=== PATIENT | male | born 1940 | race Caucasian/White ===

== ENCOUNTER 2017-06-03 10:11 | Day surgery (SDC) | payer MEDICARE, OTHER ==
[2017-06-02 15:41] VITALS: BMI 27.8
[2017-06-03] MEDS ORDERED: Gadobenate Dimeglumine 529 MG/1 ML (20ML VIAL) ONE (12:52)
--- NOTE | 2017-06-04 07:33 | MRI ---
POST CONTRAST ENHANCED MRI IMAGES OF THE LUMBAR SPINE: History: Low back pain. History of surgery. Technique: Multiplanar, multisequence pre and post contrast enhanced MRI images of the lumbar spine o btained. FINDINGS: Images demonstrate no evidence of definite compression fractures. There is signal abnormality in the inferior endplate of L5 and superior endplate of S1. There is some increased signal seen in the L5-S1 intervertebral disc space. This may represent possible L5-S1 disc degenerative changes with adjacent Modic type I changes. The degree of disc edema and endplate castillo es has increased compared to the previous comparison MRI from 08-20-16. T11-12: There is an annular fissure in the left T11-12 disc. No significant degree of central stenosi s is seen. The neural foramen are patent. T12-L1: There is some disc desiccation change seen. No significant degree of central stenosis seen. T here is mild facet hypertrophy seen. L1-2: There is some disc desiccation seen. There is a broad based disc bulge with bilateral facet hyp ertrophy. This results in mild central stenosis and lateral recess stenosis. The neural foramen are p atent. L2-3: Disc desiccation is seen. There is a broad based disc bulge with bilateral facet hypertrophy. T his results in moderate degree of central stenosis with moderate left L2-3 lateral recess stenosis. T he neural foramen demonstrated a moderate degree of patency. L3-4: Disc desiccation is seen. There is a broad based disc bulge with moderate bilateral facet hype rtrophy. This results in moderate to severe bilateral neural foraminal narrowing. This is not signifi cantly changed since the previous comparison exam from 2016. The patient has had a previous L3, L4, a nd L5 laminectomies. L4-5: There is mild anterolisthesis of L4 on L5. This is unchanged since the previous comparison MRI. There is severe facet hypertrophy bilaterally with moderate to severe bilateral neural foraminal rafiq rowing. Mild grade I anterolisthesis of L4 on L5 is seen. L5-S1: Again endplate changes and findings compatible with disc degenerative change is noted. There i s moderate right and moderate to severe left sided neural foraminal narrowing due to facet hypertroph y. This is not significantly changed since the previous comparison exam. There is a broad based disc bulge in the right L5-S1 bilateral recess and neural foramen. This is not significantly changed since the previous comparison exam. IMPRESSION: 1. Multilevel laminectomies with neural foraminal narrowing at multiple levels. No significant degree of acute lumbar spine pathology is seen. There does appear to be some progressing L5-S1 disc degener ative changes and increasing Modic type I changes involving the endplates at L5-S1. POS: [facility]
== END 2017-06-03 13:56 | disposition home or self-care (01) ==
LOC: SDC/OP 10:11
PROVIDERS: ATTEND Nurse Practitioner Family
DX: M48.062 Spinal stenosis, lumbar region with neurogenic claudication (principal); F40.240 Claustrophobia; Z88.0 Allergy status to penicillin; Z88.8 Allergy status to other drugs, medicaments and biological substances
CPT/HCPCS: 36415; 72158; 82565; A9579

== ENCOUNTER 2021-08-24 09:38 | Outpatient (CLI) | payer MEDICARE | END 2021-08-24 09:39 | disposition home or self-care (01) | LOC: BICRAD 09:38 | PROVIDERS: ATTEND Nurse Practitioner Family | DX: M25.561 Pain in right knee (principal) ==

== ENCOUNTER 2021-09-05 13:58 | Inpatient (IN) | payer MEDICARE ==
[2021-09-05] MEDS ORDERED: Morphine 4 MG/ML VIAL ONE ×2 (14:19→16:09)
[2021-09-05] MEDS ORDERED: Fentanyl 100 MCG/2 ML VIAL ONE (15:38)
[2021-09-05 15:42] LABS: Hemoglobin 14.1 g/dL (14.0-18.0); Mean Corpuscular HGB CONC 33.2 g/dL (32.0-36.0); Mean Corpuscular Hemoglobin 32.4 pg (27.0-31.0); Mean Corpuscular Volume 97.6 fL (78.0-98.0); Platelet Count 348 thou/uL (130-400); RBC Distribution Width 11.8 % (11.5-14.5); Red Blood Cell (RBC) Count 4.34 mill/uL (4.70-6.10); White Blood Cell (WBC) Count 21.3 thou/uL (4.8-10.8)
[2021-09-05 16:00] LABS: ALT (SGPT) 14 U/L (8-55); AST (SGOT) 17 U/L (5-34); Albumin 4.1 g/dL (3.4-4.8); Alkaline Phosphatase 100 U/L (40-110); Anion Gap 17 mmol/L (10-20); BUN (Urea Nitrogen) 48 mg/dL (8.4-25.7); Bilirubin, Total 0.7 mg/dL (0.2-1.2); Calc. Creatinine Clearance 0 mL/min (70-130); Calcium 9.6 mg/dL (7.8-10.44); Carbon Dioxide 15 mmol/L (23-31); Chloride 108 mmol/L (98-107); Glucose 140 mg/dL (83-110); Potassium 5.5 mmol/L (3.5-5.1); Protein, Total 8.1 g/dL (5.8-8.1); Sodium 134 mmol/L (136-145)
[2021-09-05] MEDS ORDERED: Clindamycin/D5W 900 MG in Premix Bag 1 BAG IVPB SCH (16:00)
[2021-09-05 16:06] LABS: Lymphocytes 5 % (21-51); MDiff Complete? YES; Monocytes 2 % (0-10); Neutrophil 93 % (42-75); Platelet Morphology Comment Appears Adequate; RBC Morphology Normal
[2021-09-05 16:07] LABS: Magnesium 1.9 mg/dL (1.6-2.6)
[2021-09-05] MEDS ORDERED: hydrALAZINE 20 MG/ML VIAL SLOW IVP PRN (16:08)
[2021-09-05] MEDS ORDERED: Dextrose 50% Abboject 50 ML SYRINGE SLOW IVP PRN (16:08)
[2021-09-05] MEDS ORDERED: Dextrose 5% in Water 1,000 ML IV PRN (16:08)
[2021-09-05] MEDS ORDERED: Ondansetron PF 4 MG/2 ML Vial IVP PRN (16:08)
[2021-09-05] MEDS ORDERED: Acetaminophen/Codeine 30-300mg Tablet PO PRN (16:11)
[2021-09-05] MEDS ORDERED: Cyclobenzaprine 10 MG TAB PO PRN (16:11)
[2021-09-05 16:31] LABS: Phosphorus 1.5 mg/dL (2.3-4.7)
[2021-09-05 16:45] LABS: Hemoglobin A1c 5.4 % (4.0-6.0)
[2021-09-05 16:53] LABS: SARS-CoV-2 NAA Rapid Test Not Detected (NotDetected)
[2021-09-05] MEDS ORDERED: K-Phos Neutral 250 MG TAB PO SCH (17:00)
[2021-09-05] MEDS ORDERED: Sodium Phosphate 30 MMOL in Sodium Chloride 0.9% 250 ML 250 ML IVPB SCH (17:45)
[2021-09-05 18:53] VITALS: BMI 26.9
[2021-09-05 19:23] LABS: Bacteria/HPF None Seen HPF (None Seen); Bilirubin Negative (Negative); Blood, Urine Negative (Negative); Clarity Clear (Clear); Glucose, Urine (Dipstick) Normal (Negative); Ketone, Urine Negative (Negative); Leukocyte 75 Leu/uL (Negative); Nitrite Negative (Negative); Protein, Urine (Dipstick) Negative (Neg-Trace); RBC/HPF 0-3 HPF (0-3); Specific Gravity, Urine 1.017 (1.002-1.036); Squamous Epithelial None Seen HPF (0-3); Urobilinogen Normal mg/dL (Less than 2); WBC/HPF 0-3 HPF (0-3)
[2021-09-05] MEDS: Sodium Chloride 0.9% 1,000 ML IV SCH (19:26)
[2021-09-05] MEDS: Acetaminophen 325 MG TAB PO SCH (21:45)
[2021-09-05] MEDS: Acetaminophen/Codeine 30-300mg Tablet PO SCH (21:45)
[2021-09-05] MEDS: Senokot S 8.6-50 MG TAB PO SCH (21:46)
[2021-09-05] MEDS: Famotidine 20 MG TAB PO SCH (21:46)
[2021-09-05] MEDS: Gabapentin 300 MG CAP PO SCH (21:46)
[2021-09-05] MEDS: Morphine 4 MG/ML VIAL SLOW IVP PRN (23:20)
[2021-09-06] MEDS: Acetaminophen 325 MG TAB PO SCH ×4 (01:20→17:59)
[2021-09-06] MEDS: Acetaminophen/Codeine 30-300mg Tablet PO SCH ×4 (01:21→17:57)
[2021-09-06] MEDS: Morphine 4 MG/ML VIAL SLOW IVP PRN ×2 (02:18→07:37)
[2021-09-06 04:31] LABS: #Lymphocytes 1.7 thou/uL (1.20-3.40); #Monocytes 1.2 thou/uL (0.11-0.59); #Neutrophils 13.7 thou/uL (1.40-6.50); %Basophils 0.1 % (0.0-1.0); %Eosinophils 0.2 % (0.0-10.0); %Lymphocytes 10.3 % (21.0-51.0); %Monocytes 7.4 % (0.0-10.0); Hemoglobin 11.7 g/dL (14.0-18.0); Mean Corpuscular HGB CONC 32.4 g/dL (32.0-36.0); Mean Corpuscular Hemoglobin 33.3 pg (27.0-31.0); Mean Platelet Volume 6.2 fL (7.4-10.4); Platelet Count 282 thou/uL (130-400); RBC Distribution Width 11.7 % (11.5-14.5); Red Blood Cell (RBC) Count 3.51 mill/uL (4.70-6.10); White Blood Cell (WBC) Count 16.7 thou/uL (4.8-10.8)
[2021-09-06 05:03] LABS: Anion Gap 11 mmol/L (10-20); BUN (Urea Nitrogen) 44 mg/dL (8.4-25.7); Calc. Creatinine Clearance 38 mL/min (70-130); Calcium 8.2 mg/dL (7.8-10.44); Carbon Dioxide 21 mmol/L (23-31); Chloride 109 mmol/L (98-107); Glucose 121 mg/dL (83-110); Magnesium 1.8 mg/dL (1.6-2.6); Phosphorus 5.9 mg/dL (2.3-4.7); Sodium 136 mmol/L (136-145)
[2021-09-06] MEDS ORDERED: Magnesium 2 GM/50 ML(in water) 2 GM in Premix Bag 1 BAG IVPB SCH (08:00)
[2021-09-06] MEDS ORDERED: Amlodipine 5 MG TAB PO SCH (09:00)
[2021-09-06] MEDS ORDERED: Non-Formulary Item 1 EACH (Sertraline Hcl [Zoloft] 50 MG Tab) PO SCH (09:00)
[2021-09-06] MEDS: Famotidine 20 MG TAB PO SCH ×2 (09:11→20:14)
[2021-09-06] MEDS: Gabapentin 300 MG CAP PO SCH ×3 (09:11→20:15)
[2021-09-06] MEDS ORDERED: Fentanyl 100 MCG/2 ML VIAL ONE (10:31)
[2021-09-06] MEDS ORDERED: Levofloxacin 500 mg/D5W 100 ml Premix Bag ONE (10:34)
[2021-09-06] MEDS ORDERED: Bupivacaine HCl 0.5%/Epinephrine 1:200,000/PF 30 ml Vial ONE (10:40)
[2021-09-06] MEDS ORDERED: Vancomycin (BATCH) 1.5 GRAM/300 ML BAG ONE (10:46)
[2021-09-06] MEDS ORDERED: HYDROcodone/Acetaminophen 10/325 mg Tablet PO PRN ×2 (10:54)
[2021-09-06] MEDS ORDERED: Ondansetron PF 4 MG/2 ML Vial IVP PRN (10:54)
[2021-09-06] MEDS ORDERED: diphenhydrAMINE 25 MG CAP PO PRN (10:54)
[2021-09-06] MEDS ORDERED: Fentanyl 100 MCG/2 ML VIAL SLOW IVP PRN (10:54)
[2021-09-06] MEDS ORDERED: Acetaminophen 325 MG TAB PO PRN (10:54)
[2021-09-06] MEDS ORDERED: Zolpidem Tartrate 5 MG TAB PO PRN (10:54)
[2021-09-06] MEDS ORDERED: Promethazine HCl 25 MG/ML VIAL IM PRN ×2 (10:54→13:09)
[2021-09-06] MEDS: CEFAZOLIN 2 GM in Sodium Chloride 0.9% 100 ML IVPB SCH ×2 (11:00→18:00)
[2021-09-06] MEDS ORDERED: Bupivacaine PF 0.5% 30 ML VIAL ONE (11:04)
[2021-09-06] MEDS ORDERED: EPINEPHrine 1 MG/ML AMP ONE (11:04)
[2021-09-06] MEDS ORDERED: CEFAZOLIN 2 GM VIAL ONE (11:12)
[2021-09-06] MEDS ORDERED: Sodium Chloride 0.9% 100 ML ONE (11:12)
[2021-09-06] MEDS ORDERED: Phenylephrine 10 MG/ML VIAL ONE (11:14)
[2021-09-06] MEDS ORDERED: Propofol 1,000 MG/100 ML VIAL IV ONE (11:14)
[2021-09-06] MEDS ORDERED: Ondansetron HCl/PF 4 MG/2 ML Vial IVP PRN (13:09)
[2021-09-06] MEDS ORDERED: Promethazine HCl 25 MG/ML VIAL IVPB PRN (13:09)
[2021-09-06] MEDS: Polyethylene Glycol 3350 17 GM Packet PO SCH (15:27)
[2021-09-06] MEDS: Senokot S 8.6-50 MG TAB PO SCH ×2 (15:27→20:14)
[2021-09-06] MEDS: Sodium Chloride 0.9% 1,000 ML IV SCH (15:37)
[2021-09-06] MEDS: Ferrous Gluconate 324 MG TAB PO SCH (20:14)
[2021-09-06] MEDS: Aspirin 81 mg Enteric Coated Tablet PO SCH (20:14)
[2021-09-06] MEDS: Atorvastatin Calcium 20 MG TAB PO SCH (20:14)
[2021-09-06] MEDS ORDERED: Senokot S 8.6-50 MG TAB PO SCH (21:00)
[2021-09-07] MEDS: Acetaminophen 325 MG TAB PO SCH ×6 (00:16→23:29)
[2021-09-07] MEDS: Acetaminophen/Codeine 30-300mg Tablet PO SCH ×5 (00:33→23:29)
[2021-09-07] MEDS: CEFAZOLIN 2 GM in Sodium Chloride 0.9% 100 ML IVPB SCH (02:48)
[2021-09-07] MEDS: Sodium Chloride 0.9% 1,000 ML IV SCH (02:48)
[2021-09-07 05:51] LABS: Hemoglobin 11.5 g/dL (14.0-18.0); Mean Corpuscular HGB CONC 33.2 g/dL (32.0-36.0); Mean Corpuscular Hemoglobin 33.3 pg (27.0-31.0); Mean Platelet Volume 6.3 fL (7.4-10.4); Platelet Count 250 thou/uL (130-400); RBC Distribution Width 11.9 % (11.5-14.5); Red Blood Cell (RBC) Count 3.46 mill/uL (4.70-6.10); White Blood Cell (WBC) Count 12.9 thou/uL (4.8-10.8)
[2021-09-07] MEDS: Polyethylene Glycol 3350 17 GM Packet PO SCH (08:22)
[2021-09-07] MEDS: Senokot S 8.6-50 MG TAB PO SCH ×2 (08:22→21:02)
[2021-09-07] MEDS: Aspirin 81 mg Enteric Coated Tablet PO SCH ×2 (08:23→21:01)
[2021-09-07] MEDS: Famotidine 20 MG TAB PO SCH ×2 (08:23→21:04)
[2021-09-07] MEDS: Multivitamin W/ Minerals 1 TAB PO SCH (08:23)
[2021-09-07] MEDS: Gabapentin 300 MG CAP PO SCH (08:23)
[2021-09-07] MEDS: Ferrous Gluconate 324 MG TAB PO SCH ×2 (08:23→21:04)
[2021-09-07 08:39] LABS: Anion Gap 13 mmol/L (10-20); BUN (Urea Nitrogen) 31 mg/dL (8.4-25.7); Calc. Creatinine Clearance 46 mL/min (70-130); Carbon Dioxide 19 mmol/L (23-31); Chloride 108 mmol/L (98-107); Glucose 112 mg/dL (83-110); Magnesium 1.9 mg/dL (1.6-2.6); Phosphorus 3.5 mg/dL (2.3-4.7); Sodium 135 mmol/L (136-145)
[2021-09-07] MEDS: Gabapentin 100 MG CAP PO SCH ×3 (08:41→21:04)
[2021-09-07] MEDS ORDERED: Hydrocortisone Sod Succ/PF 100 mg/2 ml Vial IVP SCH ×2 (10:30)
[2021-09-07] MEDS: Metoprolol Tartrate 25 MG TAB PO SCH ×2 (12:06→21:02)
[2021-09-07] MEDS: Hydrocortisone Sod Succ/PF 100 mg/2 ml Vial IVP SCH ×2 (17:05→23:32)
[2021-09-07] MEDS: Atorvastatin Calcium 20 MG TAB PO SCH (21:04)
[2021-09-08] MEDS: Hydrocortisone Sod Succ/PF 100 mg/2 ml Vial IVP SCH ×2 (06:06→12:48)
[2021-09-08] MEDS: Acetaminophen 325 MG TAB PO SCH ×2 (06:06→12:48)
[2021-09-08] MEDS: Acetaminophen/Codeine 30-300mg Tablet PO SCH ×2 (06:06→12:47)
[2021-09-08 06:17] LABS: Hemoglobin 10.5 g/dL (14.0-18.0); Mean Corpuscular Hemoglobin 33.3 pg (27.0-31.0); Mean Platelet Volume 6.8 fL (7.4-10.4); Platelet Count 214 thou/uL (130-400); RBC Distribution Width 11.7 % (11.5-14.5); Red Blood Cell (RBC) Count 3.14 mill/uL (4.70-6.10); White Blood Cell (WBC) Count 21.1 thou/uL (4.8-10.8)
[2021-09-08 06:38] LABS: Band 4 % (5-11); Lymphocytes 3 % (21-51); MDiff Complete? YES; Monocytes 4 % (0-10); Neutrophil 89 % (42-75)
[2021-09-08 06:41] LABS: Anion Gap 13 mmol/L (10-20); BUN (Urea Nitrogen) 32 mg/dL (8.4-25.7); Calc. Creatinine Clearance 42 mL/min (70-130); Calcium 8.3 mg/dL (7.8-10.44); Carbon Dioxide 18 mmol/L (23-31); Chloride 106 mmol/L (98-107); Glucose 157 mg/dL (83-110); Magnesium 2.1 mg/dL (1.6-2.6); Phosphorus 3.3 mg/dL (2.3-4.7); Potassium 4.2 mmol/L (3.5-5.1); Sodium 133 mmol/L (136-145)
[2021-09-08] MEDS ORDERED: Sodium Chloride 0.9% 500 ML IV SCH (07:30)
[2021-09-08] MEDS: Multivitamin W/ Minerals 1 TAB PO SCH (08:57)
[2021-09-08] MEDS: Aspirin 81 mg Enteric Coated Tablet PO SCH (08:57)
[2021-09-08] MEDS: Ferrous Gluconate 324 MG TAB PO SCH (08:57)
[2021-09-08] MEDS: Senokot S 8.6-50 MG TAB PO SCH (08:58)
[2021-09-08] MEDS: Polyethylene Glycol 3350 17 GM Packet PO SCH (08:58)
[2021-09-08] MEDS: Metoprolol Tartrate 25 MG TAB PO SCH (08:58)
[2021-09-08] MEDS: Gabapentin 100 MG CAP PO SCH (08:59)
[2021-09-08 16:01] VITALS: BP 105/67; TEMP 98.3
[2021-09-08] MEDS ORDERED: Famotidine 20 MG TAB PO SCH (21:00)
== END 2021-09-08 16:50 | disposition home or self-care (01) | DRG 522 ==
LOC: ERS 13:58 → 2NO 15:15 → SURG A 09-06 09:51
PROVIDERS: ADMIT Surgery; ATTEND Surgery
PROC: 0SR902A Replacement of Right Hip Joint with Metal on Polyethylene Synthetic Substitute, Uncemented, Open Approach (ICD-10-PCS; principal; 2021-09-06)
DX: S72.011A Unspecified intracapsular fracture of right femur, initial encounter for closed fracture (principal); M25.051 Hemarthrosis, right hip; N17.9 Acute kidney failure, unspecified; E87.1 Hypo-osmolality and hyponatremia; I10 Essential (primary) hypertension; M19.90 Unspecified osteoarthritis, unspecified site; E87.5 Hyperkalemia; E83.39 Other disorders of phosphorus metabolism; G89.29 Other chronic pain; G62.9 Polyneuropathy, unspecified; I25.10 Atherosclerotic heart disease of native coronary artery without angina pectoris; Z20.822 Contact with and (suspected) exposure to COVID-19; G47.00 Insomnia, unspecified; W18.30XA Fall on same level, unspecified, initial encounter; I48.0 Paroxysmal atrial fibrillation; Z96.653 Presence of artificial knee joint, bilateral; Z79.899 Other long term (current) drug therapy; Z88.0 Allergy status to penicillin; Z86.73 Personal history of transient ischemic attack (TIA), and cerebral infarction without residual deficits; Y93.E9 Activity, other interior property and clothing maintenance; Y92.008 Other place in unspecified non-institutional (private) residence as the place of occurrence of the external cause; Z90.49 Acquired absence of other specified parts of digestive tract
CPT/HCPCS: 36415; 36416; 71045; 80048; 80053; 81003; 81015; 82533; 83036; 83735; 84100; 85025; 85027; 93005; 96374; 96375; 96376; C1776; J0171; J1720; J1956; J2270; J2370; J2704; J3010; J3370; J3475; J3490; J7030; J7050; S0020; U0002

== ENCOUNTER 2021-10-13 12:59 | Emergency (ER) | payer MEDICARE ==
[2021-10-13 14:53] LABS: #Eosinphils 0.4 thou/uL (0.0-0.7); #Lymphocytes 1.9 thou/uL (1.20-3.40); #Monocytes 0.7 thou/uL (0.11-0.59); #Neutrophils 6.8 thou/uL (1.40-6.50); %Basophils 0.4 % (0.0-1.0); %Eosinophils 4.5 % (0.0-10.0); %Lymphocytes 19.2 % (21.0-51.0); %Monocytes 6.8 % (0.0-10.0); Hemoglobin 10.8 g/dL (14.0-18.0); Mean Corpuscular HGB CONC 31.4 g/dL (32.0-36.0); Mean Corpuscular Hemoglobin 32.5 pg (27.0-31.0); Mean Platelet Volume 6.8 fL (7.4-10.4); Platelet Count 211 thou/uL (130-400); RBC Distribution Width 12.9 % (11.5-14.5); Red Blood Cell (RBC) Count 3.32 mill/uL (4.70-6.10); White Blood Cell (WBC) Count 9.8 thou/uL (4.8-10.8)
[2021-10-13 15:03] LABS: ALT (SGPT) Less than 7 U/L (8-55); AST (SGOT) 11 U/L (5-34); Albumin 3.6 g/dL (3.4-4.8); Alkaline Phosphatase 89 U/L (40-110); Anion Gap 15 mmol/L (10-20); BUN (Urea Nitrogen) 26 mg/dL (8.4-25.7); Bilirubin, Total 0.5 mg/dL (0.2-1.2); Calc. Creatinine Clearance 0 mL/min (70-130); Calcium 8.2 mg/dL (7.8-10.44); Carbon Dioxide 21 mmol/L (23-31); Chloride 107 mmol/L (98-107); Estimated GFR 43; Glucose 109 mg/dL (83-110); Potassium 4.7 mmol/L (3.5-5.1); Protein, Total 6.6 g/dL (5.8-8.1); Sodium 138 mmol/L (136-145)
[2021-10-13] MEDS ORDERED: CEFAZOLIN 2 GM VIAL ONE (15:20)
[2021-10-13] MEDS ORDERED: CEFAZOLIN 1 GM VIAL IM SCH (15:45)
[2021-10-13] MEDS ORDERED: Sterile Water 10 ML VIAL FS SCH (16:00)
== END 2021-10-13 16:15 | disposition home or self-care (01) ==
LOC: ERS 12:59
DX: L08.9 Local infection of the skin and subcutaneous tissue, unspecified (principal); I10 Essential (primary) hypertension
CPT/HCPCS: 36415; 80053; 85025; 86140; 87070; 87077; 87186; 87205; 96372; J0690

== ENCOUNTER 2022-02-14 12:56 | Outpatient (CLI) | payer MEDICARE | END 2022-02-14 12:57 | disposition home or self-care (01) | LOC: SCSMRI 12:56 | PROVIDERS: ATTEND Nurse Practitioner Family | DX: M47.22 Other spondylosis with radiculopathy, cervical region (principal); M47.813 Spondylosis without myelopathy or radiculopathy, cervicothoracic region | CPT/HCPCS: 72141 ==